=== PATIENT | female | born 1995 | race Caucasian/White ===

== ENCOUNTER 2024-02-03 20:25 | Inpatient (IN) | payer BC ==
[~2024-02-03] VITALS: Ht 165.1 cm; Wt 98.6 kg
--- NOTE | 2024-02-03 20:30 | NUR ---
2029- PT AMBULATORY ONTO UNIT. ADMITTED TO LABOR ROOM 5. 2034- RN AT BEDSIDE. PT PLACED ON MONITOR, VITALS OBTAINED. PT REPORTS POSSIBLE SROM OF CLEAR FLUID TODAY AT 1730, FEELING CTX EVERY 6 MINUTES APART, POSITIVE MOVEMENT. PLAN OF CARE DISCUSSED, PT VERBALIZED UNDERSTANDING. 2044- POSITIVE AMNIOTRACE X2. 2049- SVE BY THIS NURSE, 2106- DR. MORRIS CALLED, SEE PHYSICIAN NOTIFICATION. 2119- PLAN OF CARE UPDATED. DISCUSSED PROGRESSING LABOR WITH PITOCIN, PT STATES SHE WOULD LIKE TO DO NATURAL INTERVENTIONS LIKE WALKING BEFORE STARTING PITOCIN. 2144- PIV INSERTED. 2199- CONSENTS DISCUSSED WITH PT AND SIGNED. 2238- PT TAKEN OFF MONITORS TO USE THE BATHROOM AND AMBULATE. 2319- PT PLACED BACK ON MONITORS, RESTING IN BED.
[2024-02-03 21:00] VITALS: BP 133/89; PULSE 98; TEMP 97.7
[2024-02-03 21:30] VITALS: BP 129/83; PULSE 91
[2024-02-03] MEDS ORDERED: LR 1,000 ML IV SCH (21:30)
[2024-02-03 22:00] VITALS: BP 145/95; PULSE 94
[2024-02-03 22:11] LABS: BASO % 0.2 % (0.0-2.0); EOS # 0.1 K/mm3 (0.0-0.7); EOS % 0.8 % (0.0-4.0); GRAN % 65.2 % (42.2-75.2); HEMATOCRIT 37.1 % (37.0-47.0); HEMOGLOBIN 12.4 g/dl (12.5-16.0); LYMPH # 2.5 K/mm3 (1.2-3.4); LYMPH % 26.5 % (20.0-51.0); MEAN CELL VOLUME 85 fl (80.0-100.0); MEAN CORPUSCULAR HEMOGLOBIN 28 pg (27-31); MEAN CORPUSCULAR HGB CONC 33 g/dl (33.0-37.0); MEAN PLATELET VOLUME 9.9 fl (7.4-10.4); MONO # 0.6 K/mm3 (0.1-0.6); MONO % 6.8 % (1.7-9.3); PLATELET COUNT 222 K/mm3 (130-400); RED BLOOD COUNT 4.37 M/mm3 (4.10-5.30); REDCELL DISTRIBUTION WIDTH-CV 14.4 % (11.5-14.5)
[2024-02-03 22:30] VITALS: BP 135/86; PULSE 89
[2024-02-03 23:00] VITALS: PULSE 91
[2024-02-03 23:30] VITALS: PULSE 88
[2024-02-04] VITALS (54 sets, daily range): BP systolic 98–157; BP diastolic 53–95; PULSE 71–130; TEMP 97.5–99.7
--- NOTE | 2024-02-04 00:05 | NUR ---
0005- SVE BY THIS NURSE 2-/-2. 0010- PT UPDATED ON PLAN OF CARE. PT STATES SHE WOULD LIKE TO CONTINUE TO AMBULATE AROUND UNIT TO SEE IF HER BODY WILL NATURALLY PROGRESS INTO LABOR WITHOUT PITOCIN. PT REMINDED OF SROM AND INCREASE RISK OF INFECTION IF PROLONGED RUPTURE. 0020- PT UP AND AMBULATING WITH SPOUSE AROUND UNIT. 0100- PT PLACED BACK ON MONITORS AND BACK IN BED.
--- NOTE | 2024-02-04 02:00 | NUR ---
0200- SVE BY THIS NURSE 0222- PITOCIN STARTED PER PROTOCOL 0225- ANESTHESIA CALLED FOR EPIDURAL PLACEMENT 0245- ANESTHESIA AT THE BEDSIDE AND OBTAINS INFORMED CONSENT. PT PLACED AT EDGE OF BED, MONITORS ADJUSTED. 0251- SINGLE SHOT 0256- EPIDURAL PLACEMENT COMPLETE, PT PLACED WEDGED LEFT. PT REPORTS LEGS FEELING A TINGLE SENSATION AND CTX FEELING DESIGN LEADER. 0410- ROJAS PLACED. SVE BY THIS NURSE .
[2024-02-04] MEDS ORDERED: LR & Oxytocin 500 ML IV SCH (02:15)
[2024-02-04] MEDS ORDERED: ROPivacaine PF 0.2% 200 ML IV ONE (02:41)
[2024-02-04] MEDS ORDERED: Naloxone 0.4 MG/ML VIAL IV PRN ×2 (03:15→12:15)
[2024-02-04] MEDS ORDERED: Ondansetron 4 MG/2 ML VIAL IV PRN (03:15)
[2024-02-04] MEDS ORDERED: ePHEDrine 50 MG/10 ML VIAL IV PRN (03:15)
[2024-02-04] MEDS ORDERED: diphenhydrAMINE 25 MG CAP PO PRN (03:15)
[2024-02-04] MEDS ORDERED: diphenhydrAMINE 50 MG/ML 1 ML VIAL IV PRN (03:15)
--- NOTE | 2024-02-04 07:15 | NUR ---
DIFFICULT TO TRACE TOCO MONITOR CONTRACTIONS DUE TO MATERNAL POSITION AND HABITUS, PT REPORTING HIGH PAIN AND DISCOMFORT WITH CONTRACTIONS "STARTING IN MY BACK AND MOVING TO MY BELLY MAINLY ON MY RIGHT SIDE." 0720 THIS RN SVE 5- AND CHANGES PT POSITION TO RIGHT LATERAL WITH PEANUT BALL. PT ALSO PRESSES EPIDURAL DOSE BUTTON, PT VS STABLE, EFM CAT 1.
--- NOTE | 2024-02-04 08:00 | NUR ---
PT HAVING TACHYSYSOLIC CONTRACTIONS, FLUID BOLUS STARTED AND PITOCIN TURNED TO HALF FROM 8 UNITS TO 4 UNITS. NOTIFIED.
--- NOTE | 2024-02-04 08:50 | NUR ---
0808 PT PITOCIN STOPPED DUE TO TACHYCYSTOLIC CONTRACTIONS, PT VS STABLE, EFM CAT 1. 1757 PT POSITION CHANGED TO LEFT LATERAL RIGHT LEG IN STIRRUP, DIFFICULT TO TRACE ACCURATE FHR, THIS RN AT PT BEDSIDE ATTEMPTING TO TRACE. PT REPORTS NO PAIN, VS STABLE
--- NOTE | 2024-02-04 09:16 | NUR ---
UNABLE TO TRACE FHR DUE TO MATERNAL POSITION AND HABITUS, THIS RN AT PT BEDSIDE ATTEMPTING TO TRACE, AUDIBLE BASELINE 135. PT VS STABLE, PT SPOUSE SUPPORTIVE AT BEDSIDE.
--- NOTE | 2024-02-04 10:45 | NUR ---
[id number] UNABLE TO TRACE PT VS DUE TO PT POSITION AND HABITUS, PT PUSHING AND MOVING BODY. THIS RN AT PT BEDSIDE MONITORING PUSHING AND ATTEMPTING TO TRACE VS, PT AWAKE AND ALERT X3, PT SPOUSE SUPPORTIVE AT BEDSIDE.
[2024-02-04] MEDS ORDERED: Magnes Hydrox (MOM) 80 MG/ML 30 ML CUP PO PRN (12:15)
[2024-02-04] MEDS ORDERED: oxyCODONE 5 MG TAB PO PRN (12:15)
[2024-02-04] MEDS ORDERED: Acetaminophen 500 MG TAB PO PRN (12:15)
[2024-02-04] MEDS ORDERED: Phenylephrine/Mineral Oil/Petrolatum 57 GM TUBE RC PRN (12:15)
[2024-02-04] MEDS ORDERED: Witch Hazel 50% Pads Bulk TUB TP PRN (12:15)
[2024-02-04] MEDS ORDERED: Mag/Al Hydrox/Simeth Susp 30 ML CUP PO PRN (12:15)
[2024-02-04] MEDS ORDERED: Loratadine 10 MG TAB PO PRN (12:15)
[2024-02-04] MEDS ORDERED: Ibuprofen 800 MG TAB PO SCH (12:15)
[2024-02-04] MEDS ORDERED: Measles/Mumps/Rubella Virus Vaccine Live w Diluent 0.5 ML VIAL SQ SCH (12:15)
--- NOTE | 2024-02-04 12:31 | NUR ---
1000 AT PT BEDSIDE, SVE /+1. PT ROOM SET FOR DELIVERY, ROJAS CATHETER DISCONTINUED, PT POSITIONED SEMIFLOWLERS IN STIRRUPS. PT VERBALIZES UNDERSTANDING OF PUSHING. SPOUSE SUPPORTIVE AT PT BEDSIDE, PT VS STABLE, EFM CAT 1. 1010 PT BEGINS PUSHING, EFM CAT 1. AT PT BEDSIDE INTERMITTENTLY DURING PT PUSHING TO EVALUATE. 1220 , CHARGE NURSE, AND NURSERY NURSE AT PT BEDSIDE WITH THIS RN FOR DELIVERY. PT CONTINUES PUSHING EFFECTIVELY. 1231 OF VIABLE FEMALE . PLACED ON MATERNAL CHEST AND CORD CLAMPED AND CUT BY PT SPOUSE. INFANT CARE ASSUMED OVER TO NURSERY NURSE, REE. 1233 OF PLACENTA, SECOND DEGREE REPAIR BEGUN PER . THIS RN PERFORMS RECURRENT FUNDAL MASSAGES, FUNDUS FIRM AT UMBILICUS, MODERATE AMOUNT OF LOCHIA, NO CLOTS. AND THIS RN CONTINUE TO MONITOR DURING REPAIRS. PT VS STABLE. 1250 PT CLEANED AND REPOSITIONED COMFORTABLY WITH ICE PACK PAD TO PERINEUM, FUNDUS FIRM AT UMBILICUS, SMALL AMOUNT OF LOCHIA, NO CLOTS. PT VS STABLE, AWAKE AND ALERT X3. PT REPORTS "SMALL AMOUNT OF MENSTRAL TYPE CRAMPING BUT NOT BAD." ROOM CLEANED AFTER DELIVERY.
--- NOTE | 2024-02-04 13:30 | NUR ---
PT QBL OVER 500ML, NOTIFIED. TELEPHONE ORDERS TO CONTINUE TO CLOSELY MONITOR. PT VS STABLE, FUNDUS FIRM AT UMBILICUS, SCANT LOCHIA, PT AWAKE AND ALERT X3.
[2024-02-04] MEDS ORDERED: Sennosides/Docusate 8.6-50 MG TAB PO SCH (17:00)
[2024-02-04] MEDS ORDERED: traZODone 50 MG TAB PO PRN (21:00)
[2024-02-05 03:30] VITALS: BP 111/75; PULSE 84; TEMP 97.5
[2024-02-05 07:30] VITALS: BP 115/79; PULSE 93; TEMP 97.6
[2024-02-05] MEDS ORDERED: MOTRIN 800800 MG/TAB PO (08:20)
[2024-02-05] MEDS ORDERED: Sertraline 100 MG TAB PO SCH (09:00)
--- NOTE | 2024-02-05 09:32 | NUR ---
Initial visit; Parents thanked Plant Pathology Teacher for offering congratulations and God's blessings for the of their Daughter. Byron thanked family for choosing [facility] and was pleased to hear they have had a very pleasant experience with us.
[2024-02-05 11:25] VITALS: BP 101/87; PULSE 110; TEMP 97.6
--- NOTE | 2024-02-05 15:32 | NUR ---
DISCHRGE TEACHING REVIEWED WITH PATIENT AND SPOUSE. PATIENT QUESTIONS ASKED AND ANSWERED. PATIENT AMBULATORY OFF UNIT WITH SPOUSE AND THIS RNMaribeth MCLEOD ASSISTED INTO VEHICLE AND DISCHARGED HOME IN STABLE CONDITION.
== END 2024-02-05 15:32 | disposition home or self-care (01) | DRG 560 ==
LOC: LDRO 20:25 → LDR 20:35 → EDSTATUS 23:43 → OB 02-04 16:45
PROVIDERS: Obstetrics & Gynecology; ADMIT Obstetrics & Gynecology
PROC: 10E0XZZ Delivery of Products of Conception, External Approach (ICD-10-PCS; principal; 2024-02-04)
PROC: 0KQM0ZZ Repair Perineum Muscle, Open Approach (ICD-10-PCS; 2024-02-04)
PROC: 3E033VJ Introduction of Other Hormone into Peripheral Vein, Percutaneous Approach (ICD-10-PCS; 2024-02-04)
DX: O99.344 Other mental disorders complicating childbirth (principal); Z37.0 Single live birth; O75.89 Other specified complications of labor and delivery; O70.1 Second degree perineal laceration during delivery; O71.4 Obstetric high vaginal laceration alone; F41.9 Anxiety disorder, unspecified; O99.892 Other specified diseases and conditions complicating childbirth; N83.202 Unspecified ovarian cyst, left side; O99.214 Obesity complicating childbirth; Z3A.39 39 weeks gestation of pregnancy; Z86.16 Personal history of COVID-19
CPT/HCPCS: J2405; J2590; J2795; J7120